=== PATIENT | female | born 1985 | race Caucasian/White ===

== ENCOUNTER → 2023-11-07 11:29 | Outpatient (REF) | payer BC, SELFPAY | LOC: RAD 11:29 | PROVIDERS: ATTENDING PHYSICIAN Nurse Practitioner Adult Health; FAMILY PHYSICIAN Family Medicine | DX: N83.209 Unspecified ovarian cyst, unspecified side (principal) | CPT/HCPCS: 76830; 76856 ==

== ENCOUNTER → 2023-11-16 07:21 | Outpatient (REF) | payer BC, SELFPAY | LOC: RAD 07:21 | PROVIDERS: ATTENDING PHYSICIAN Physician Assistant Medical | DX: S09.90XA Unspecified injury of head, initial encounter (principal) | CPT/HCPCS: 70450 ==

== ENCOUNTER → 2025-04-25 09:07 | Outpatient (REF) | payer BC, SELFPAY | LOC: RAD 09:07 | PROVIDERS: ATTENDING PHYSICIAN Nurse Practitioner Adult Health; FAMILY PHYSICIAN Family Medicine | DX: N92.4 Excessive bleeding in the premenopausal period (principal) | CPT/HCPCS: 76830; 76856 ==

== ENCOUNTER → 2025-07-03 13:20 | Outpatient (REF) | payer BC, SELFPAY | LOC: MRI 3T 13:20 | PROVIDERS: ATTENDING PHYSICIAN Nurse Practitioner Adult Health; FAMILY PHYSICIAN Family Medicine | DX: N83.209 Unspecified ovarian cyst, unspecified side (principal); N83.201 Unspecified ovarian cyst, right side | CPT/HCPCS: 72197; A9575 ==